=== PATIENT | female | born 1965 | race Caucasian/White ===

== ENCOUNTER 2020-03-11 19:28 | Emergency (ER) | payer OTHER ==
[~2020-03-11] VITALS: Ht 162.6 cm; Wt 80.3 kg
== END 2020-03-12 00:05 | disposition home or self-care (01) ==
LOC: ER 19:28
DX: M50.30 Other cervical disc degeneration, unspecified cervical region (principal); Z20.828 Contact with and (suspected) exposure to other viral communicable diseases